=== PATIENT | female | born 1940 | race Caucasian/White ===

== ENCOUNTER → 2016-09-11 | Outpatient (CLI) | payer OTHER | LOC: CIMAGING 12:25 | PROVIDERS: ATTEND Internal Medicine Endocrinology, Diabetes & Metabolism | DX: S13.150A Subluxation of C4/C5 cervical vertebrae, initial encounter (principal); S13.180A Subluxation of C7/T1 cervical vertebrae, initial encounter; M12.88 Other specific arthropathies, not elsewhere classified, other specified site; M50.322 Other cervical disc degeneration at C5-C6 level; M50.323 Other cervical disc degeneration at C6-C7 level | CPT/HCPCS: 72040-PO ==

== ENCOUNTER → 2016-10-02 | Outpatient (CLI) | payer OTHER | LOC: CIMAGING 11:45 | PROVIDERS: ATTEND Physical Medicine & Rehabilitation Neuromuscular Medicine | DX: M43.12 Spondylolisthesis, cervical region (principal) | CPT/HCPCS: 72040-PO ==

== ENCOUNTER → 2017-09-23 | Outpatient (CLI) | payer OTHER | LOC: BHCLAF 10:45 | PROVIDERS: ATTEND Internal Medicine Cardiovascular Disease | DX: R00.2 Palpitations (principal); I35.9 Nonrheumatic aortic valve disorder, unspecified; I05.9 Rheumatic mitral valve disease, unspecified | CPT/HCPCS: 93306-PO ==

== ENCOUNTER → 2017-10-02 | Outpatient (CLI) | payer OTHER | LOC: BHFA 13:30 | PROVIDERS: ATTEND Internal Medicine Cardiovascular Disease | DX: R07.9 Chest pain, unspecified (principal) | CPT/HCPCS: 78452; 93017; A9500 ==

== ENCOUNTER 2017-11-11 09:23 | Day surgery (SDC) | payer OTHER ==
[2017-11-11] MEDS ORDERED: diphenhydrAMINE 25 MG CAP PO ONE (09:26)
[2017-11-11] MEDS ORDERED: DIAZEPAM 5 MG TAB PO ONE (09:26)
[2017-11-11] MEDS ORDERED: ASPIRIN EC 325 MG TAB PO ONE (09:26)
[2017-11-11] MEDS ORDERED: FAMOTIDINE 20 MG TAB PO ONE (09:26)
[2017-11-11] MEDS ORDERED: NS 1,000 ML IV ONE (09:26)
--- NOTE | 2017-11-11 09:55 | CPEKG ---
Heart Rate: 87 RR Interval: 690 P-R Interval: 188 QRSD Interval: 88 QT Interval: 376 QTC Interval: 453 P [place]: 76 QRS [place]: -17 T Wave [place]: -18 EKG Severity - BORDERLINE ECG - EKG Impression: SINUS RHYTHM EKG Impression: PAC EKG Impression: BORDERLINE LEFT AXIS DEVIATION EKG Impression: LOW VOLTAGE IN FRONTAL LEADS EKG Impression: BORDERLINE T ABNORMALITIES, DIFFUSE LEADS EKG Impression: NO SIGNIFICANT CHANGE COMPARED WITH 09/26/2010 Electronically Signed By: Antonina Zuniga 11-Nov-2017 16:38:07
[2017-11-11] MEDS ORDERED: methylPREDNISolone SOD SUCC 125 MG/2 ML VIAL IVP ONE (10:06)
[2017-11-11] MEDS ORDERED: FAMOTIDINE 20 MG/NACL 50 ML IV ONE (10:06)
[2017-11-11] MEDS ORDERED: methylPREDNISolone SOD SUCC 125 MG/2 ML VIAL ONE (10:08)
[2017-11-11] MEDS ORDERED: FAMOTIDINE 20 MG/NACL/50 ML BAG IV ONE (10:09)
[2017-11-11 10:11] LABS: PLATELET COUNT 273 10^3/uL (150-400)
--- NOTE | 2017-11-11 10:16 | PDPROPOC ---
Sedation Plan of Care Sedation Plan of Care: vital signs stable, mental status noted, patient educated of risks, benefits, alternatives, patient can tolerate sedation ASA Classification: ASA 2 Planned drugs: fentanyl, midazolam Mallampati Score: Class 2 Mallampati Reference Image: Patient passed 3-3-2 rule?: Yes
--- NOTE | 2017-11-11 10:19 | PDGENHP ---
History & Physical Chief Complaint: Abnormal Stress Test History of Present Illness: Pt is a 77 yo, f with known CAD who presented with symptoms of increased SWANSON and L scapular pain. Stress testing was notable for an intermediate inferoseptal perfusinon defect. Pt is s/p SVG to RCA approximately 14 years ago. Relevant Physical Exam: RRR, S1, S2. CTA. No edema. A, A,Ox3 Cardiorespiratory Assessment: Angiogram for risk stratification.
[2017-11-11 10:23] LABS: INR 0.95 (0.83-1.16); PROTIME(PATIENT) 12.9 SEC (12.0-15.0)
[2017-11-11] MEDS ORDERED: LIDOCAINE 1% 300 MG/30 ML SDV ONE (11:19)
[2017-11-11] MEDS ORDERED: IOPAMIDOL (ISOVUE-370) 150 ML BTL IV ONE (11:20)
[2017-11-11] MEDS ORDERED: fentaNYL 100 MCG/2 ML INJ ONE (11:20)
[2017-11-11] MEDS ORDERED: MIDAZOLAM 2 MG/2 ML VIAL ONE (11:20)
[2017-11-11] MEDS ORDERED: NITROGLYCERIN 0.4 MG BTL SL PRN (12:14)
[2017-11-11] MEDS ORDERED: OXYCODONE/APAP 5/325 TAB PO PRN (12:14)
[2017-11-11] MEDS ORDERED: ATROPINE SULFATE 1 MG/10 ML SYR IVP PRN (12:14)
[2017-11-11] MEDS ORDERED: HYDROCODONE/APAP 5/325 TAB PO PRN (12:14)
[2017-11-11] MEDS ORDERED: LORazepam 0.5 MG TAB PO PRN (12:14)
[2017-11-11] MEDS ORDERED: ONDANSETRON 4 MG/2 ML VIAL IVP PRN (12:14)
--- NOTE | 2017-11-11 12:27 | CPIP ---
[f rep st] INVASIVE CARDIAC PROCEDURE DATE OF PROCEDURE: 11/11/2017 PROCEDURES: 1. Coronary angiography. 2. Bypass graft angiography. 3. Left ventriculography. INDICATION: 1. Known coronary artery disease, status post CABG. 2. Dyspnea on exertion and left scapular pain, concerning for anginal equivalent. 3. Abnormal nuclear stress test with inferoseptal ischemia. ACCESS: Patient was prepped and draped in sterile fashion. 1% lidocaine was used to anesthetize the right inguinal region. A 6-Lebanese introducer sheath was placed selectively into the right common fe moral artery via modified Seldinger technique. CORONARY ANGIOGRAPHY: A 6-Lebanese JL4 was advanced to the left main coronary artery and images obtain ed. The left main coronary artery bifurcated into an LAD and circumflex coronary arteries. The left main coronary artery appeared normal. The left anterior descending coronary artery gave rise to 1 p rominent diagonal branch as well as several smaller diagonal arteries. The left anterior descending c oronary artery had mild luminal irregularities throughout. There was no stenosis greater than 15%. The diagonal arteries were free of any significant disease. The circumflex coronary artery was a lar ge vessel, but it was nondominant. Circumflex coronary artery appeared normal. A 6-Lebanese JR4 was a dvanced to the right coronary artery and images obtained. The right coronary artery is dominant. Th e right coronary artery had a long segmental 70% stenosis in the mid vessel. Bypass graft angiograph y. A 6-Lebanese JR4 was used to engage the saphenous vein graft to right coronary artery. The sapheno us vein graft to right coronary artery was patent. In the proximal section of the saphenous vein mercedes t there was a single discrete 50% stenosis present. In the mid graft there is a long segmental 50% s tenosis present. The diameter at the area of stenosis was still larger than the vessel it supplied. LEFT VENTRICULOGRAPHY: A 6-Lebanese pigtail catheter was advanced in the left ventricle and images obt ained. Left ventricle is normal in size and normal systolic function. Estimated ejection fraction o f 65%. COMPLICATIONS: None. CONCLUSIONS: 1. Single-vessel coronary artery disease. 2. Moderate disease of the saphenous vein graft to right coronary artery. 3. Normal left ventricular size and systolic function. 4. Plan is for medical management. /[id number]/MODL
[2017-11-11] MEDS ORDERED: ASPIRIN EC 81 MG TAB PO SCH (21:00)
[2017-11-11] MEDS ORDERED: CHOLECALCIFEROL VIT D3 1,000 UNITS TAB PO SCH (21:00)
[2017-11-12] MEDS ORDERED: LEVOTHYROXINE 112 MCG TAB PO SCH (06:00)
[2017-11-12] MEDS ORDERED: ATENOLOL 50 MG TAB PO SCH (09:00)
== END 2017-11-11 16:38 | disposition home or self-care (01) ==
LOC: FCATH 09:23
PROVIDERS: ATTEND Internal Medicine Cardiovascular Disease
PROC: B2151ZZ Fluoroscopy of Left Heart using Low Osmolar Contrast (ICD-10-PCS; principal; 2017-11-11)
PROC: B2111ZZ Fluoroscopy of Multiple Coronary Arteries using Low Osmolar Contrast (ICD-10-PCS; principal; 2017-11-11)
PROC: 4A023N7 Measurement of Cardiac Sampling and Pressure, Left Heart, Percutaneous Approach (ICD-10-PCS; principal; 2017-11-11)
DX: I25.709 Atherosclerosis of coronary artery bypass graft(s), unspecified, with unspecified angina pectoris (principal); I25.118 Atherosclerotic heart disease of native coronary artery with other forms of angina pectoris; I10 Essential (primary) hypertension
CPT/HCPCS: J1200; J1644; J2250; J2930; J3010; Q9967

== ENCOUNTER → 2018-09-10 | Outpatient (CLI) | payer OTHER | LOC: BHFA 10:45 | PROVIDERS: ATTEND Internal Medicine Cardiovascular Disease | DX: I25.10 Atherosclerotic heart disease of native coronary artery without angina pectoris (principal) ==

== ENCOUNTER → 2018-10-06 | Outpatient (CLI) | payer OTHER | DX: I35.1 Nonrheumatic aortic (valve) insufficiency (principal); I25.810 Atherosclerosis of coronary artery bypass graft(s) without angina pectoris; E78.5 Hyperlipidemia, unspecified ==

== ENCOUNTER 2018-10-24 09:19 | Emergency (ER) | payer OTHER ==
--- NOTE | 2018-10-24 09:31 | EDPHY ---
H & P Time Seen by Provider: 10/24/18 09:26 HPI/ROS: CHIEF COMPLAINT: Skin tear HISTORY OF PRESENT ILLNESS: Patient is an 78-year-old female who bumped her arm on shelving 2 days ago and developed a skin tear to her left forearm. She went to an urgent care who placed Steri-Strips but those fell off. She has kept it dressed since that time but came here today wondering if it should be sutured. She denies other injuries. Severity: Moderate Modifying factors: None REVIEW OF SYSTEMS: Constitutional: denies: chills, fever, recent illness, recent injury EENTM: denies: blurred vision, double vision, nose congestion Respiratory: denies: cough, shortness of breath Cardiac: denies: chest pain, irregular heart rate, lightheadedness, palpitations Gastrointestinal/Abdominal: denies: abdominal pain, diarrhea, nausea, vomiting, blood streaked stools Genitourinary: denies: dysuria, frequency, hematuria, pain Musculoskeletal: denies: joint pain, muscle pain Skin: See HPI Neurological: denies: headache, numbness, paresthesia, tingling, dizziness, weakness Hematologic/Lymphatic: denies: blood clots, easy bleeding, easy bruising Immunologic/allergic: denies: HIV/AIDS, transplant 10 systems reviewed and negative except as noted EXAM: GENERAL: Well-appearing, well-nourished and in no acute distress. HEAD: Atraumatic, normocephalic. EYES: Pupils equal round and reactive to light, extraocular movements intact, sclera anicteric, conjunctiva are normal. ENT: TMs normal, nares patent, oropharynx clear without exudates. Moist mucous membranes. NECK: Normal range of motion, supple without lymphadenopathy or JVD. LUNGS: Breath sounds clear to auscultation bilaterally and equal. No wheezes rales or rhonchi. HEART: Regular rate and rhythm without murmurs, rubs or gallops. ABDOMEN: Soft, nontender, normoactive bowel sounds. No guarding, no rebound. No masses appreciated. BACK: No CVA tenderness, no spinal tenderness, step-offs or deformities EXTREMITIES: Normal range of motion, no pitting or edema. No clubbing or cyanosis. NEUROLOGICAL: Cranial nerves II through XII grossly intact. Normal speech, normal gait. 5/5 strength, normal movement in all extremities, normal sensation , normal reflexes PSYCH: Normal mood, normal affect. SKIN: Small skin tear left forearm. No significant bleeding. Source: Patient Exam Limitations: No limitations - Medical/Surgical History Hx Asthma: No Hx Chronic Respiratory Disease: No Hx Diabetes: No Hx Cardiac Disease: No Hx Renal Disease: No Hx Cirrhosis: No Hx Alcoholism: No Hx HIV/AIDS: No Hx Splenectomy or Spleen Trauma: No - Family History Significant Family History: No pertinent family hx - Social History Smoking Status: Never smoked Alcohol Use: Sober Drug Use: None Constitutional: Initial Vital Signs Temperature (C) 36.6 C 10/24/18 09:40 Heart Rate 80 10/24/18 09:40 Respiratory Rate 18 10/24/18 09:40 Blood Pressure 178/72 H 10/24/18 09:40 O2 Sat (%) 94 10/24/18 09:40 O2 Delivery Mode Room Air Allergies/Adverse Reactions: iodine [Iodine] Allergy (Intermediate, Verified 10/24/18 09:39) Hives Home Medications: Medication Instructions Recorded Aspirin EC [Aspirin EC 81 mg (*)] 81 mg PO HS 11/05/17 Atenolol [Tenormin 50 mg (*)] 50 mg PO DAILY 11/05/17 Cholecalciferol Vit D3 [Vitamin D3 2,000 units PO HS 11/05/17 (*)] Herbals/Supplements -Info Only 1 ea PO DAILY 11/05/17 LORazepam [Lorazepam] 0.5 mg PO HS PRN 11/05/17 Levothyroxine [Synthroid 112 mcg 112 mcg PO DAILY06 11/05/17 (*)] Medical Decision Making ED Course/Re-evaluation: Patient has a very minor skin tear to her left forearm. It has been more than 48 hr. I do not think the risks of closing it or worth the improvement and cosmesis. I encouraged her to keep it dressed with antibiotic ointments. The thin flap of skin will likely not survive and her wound will heal by secondary intention. She understands and agrees with this plan. Differential Diagnosis: Partial list of the Differential diagnosis considered include but were not limited to; skin tear, laceration and although unlikely based on the history and physical exam, I also considered vascular injury, nerve injury, fracture. I discussed these differential diagnoses and the plan with the patient as well as the usual and expected course. The patient understands that the diagnosis is provisional and that in medicine we are not always correct and that further workup is often warranted. Usual and customary warnings were given. All of the patient's questions were answered. The patient was instructed to return to the emergency department should the symptoms at all worsen or return, otherwise to followup with the physician as we discussed. Departure - Departure Disposition: Home, Routine, Self-Care Clinical Impression: Skin tear of left forearm without complication Qualifiers: Encounter type: initial encounter Qualified Code(s): S51.812A - Laceration without foreign body of left forearm, initial encounter Condition: Fair Instructions: Skin Tear (ED) Referrals: Shakila Douglas MD [Primary Care Provider] - As per Instructions
[2018-10-24 09:44] VITALS: BP 178/72
== END 2018-10-24 09:58 | disposition home or self-care (01) ==
LOC: CED 09:19
DX: S51.812D Laceration without foreign body of left forearm, subsequent encounter (principal)
CPT/HCPCS: 99282-ER